=== PATIENT | male | born 1980 | race Caucasian/White ===

== ENCOUNTER 2019-12-08 16:59 | Emergency (ER) | payer OTHER ==
[2019-12-08 17:06] VITALS: BP 124/78; PULSE 76; TEMP 98.5; BMI 38.9
[2019-12-08] MEDS ORDERED: IBUPROFEN 600 MG TABLET (FP) PO ONE ×2 (17:36→17:41)
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
== END 2019-12-08 18:25 | disposition home or self-care (01) ==
LOC: JERFT 16:59
DX: S16.1XXA Strain of muscle, fascia and tendon at neck level, initial encounter (principal); M77.12 Lateral epicondylitis, left elbow
CPT/HCPCS: 72040-TC; 73070-TC-LT-FY; 99283-25

== ENCOUNTER 2023-09-25 15:25 | Emergency (ER) | payer OTHER ==
[2023-09-25 15:33] VITALS: RESP 18; TEMP 98; BMI 32.0
[2023-09-25] MEDS ORDERED: morphine SULFATE 4 MG/ML VIAL ONE ×2 (15:38→18:25)
[2023-09-25] MEDS: morphine CARPU-JECT 4 MG/1 ML DISP.SYRIN IVPUSH ONE ×2 (15:57→18:38)
[2023-09-25] MEDS ORDERED: DIPHTH,PERTUSS(ACELL),TET 0.5 ML DISP.SYRIN IM ONE (16:41)
[2023-09-25] MEDS: DIPHTH,PERTUSS(ACELL),TET 0.5 ML DISP.SYRIN IM ONE (16:44)
[2023-09-25] MEDS: SODIUM CHLORIDE 0.9% 1000 ML INFUS.BAG IV ONE (16:44)
[2023-09-25 16:50] LABS: BASO % 0.1 % (0-2.0); EOS % 0.2 % (0-4.5); HEMATOCRIT 47.4 % (35.4-49); HEMOGLOBIN 16.2 GM/dL (11.7-16.9); MCH 31.6 pg (25.7-33.7); MCHC 34.1 g/dl (32.0-35.9); MEAN CELL VOLUME 92.6 fl (80-96); MEAN PLT VOLUME 9.2 fl (7.5-11.1); MONO % 6.5 % (3.8-10.2); NEUT % 84.2 % (42.8-82.8); PLATELET COUNT 200 10^3/uL (134-434); RBC 5.12 M/mm3 (4.00-5.60); RDW 14.3 % (11.9-15.9)
[2023-09-25 16:56] LABS: INR 1.01 (0.83-1.09); PROTHROMBIN TIME (PATIENT) 11.6 SEC (9.7-13.0)
[2023-09-25 17:03] LABS: POTASSIUM 3.5 mmol/L (3.5-5.1)
[2023-09-25 17:05] LABS: ALBUMIN 4.3 g/dl (3.4-5.0); BLOOD UREA NITROGEN 20.5 mg/dL (7-18); CALCIUM 9.1 mg/dL (8.5-10.1)
[2023-09-25 17:08] LABS: CREATININE 1.1 mg/dL (0.55-1.3)
[2023-09-25 17:10] LABS: BILIRUBIN,TOTAL 0.8 mg/dL (0.2-1); TOT PROT 7.6 g/dl (6.4-8.2)
[2023-09-25 18:33] VITALS: BP 98/58; PULSE 64
[2023-09-25] MEDS: SODIUM CHLORIDE 0.9% 500 ML INFUS.BAG IV ONE (18:54)
== END 2023-09-25 20:46 | disposition short-term general hospital (02) ==
LOC: JER 15:25
PROC: 3E033NZ Introduction of Analgesics, Hypnotics, Sedatives into Peripheral Vein, Percutaneous Approach (ICD-10-PCS; principal; 2023-09-25)
PROC: 3E033NZ Introduction of Analgesics, Hypnotics, Sedatives into Peripheral Vein, Percutaneous Approach (ICD-10-PCS; 2023-09-25)
PROC: 3E0234Z Introduction of Serum, Toxoid and Vaccine into Muscle, Percutaneous Approach (ICD-10-PCS; 2023-09-25)
DX: S22.43XA Multiple fractures of ribs, bilateral, initial encounter for closed fracture (principal); Y04.8XXA Assault by other bodily force, initial encounter; Z20.822 Contact with and (suspected) exposure to COVID-19; Z23 Encounter for immunization
CPT/HCPCS: 0241U-QW; 36415; 70450-TC; 71260-TC; 72125-TC; 72128-TC; 72131-TC; 74177-TC; 76604; 76705-TC; 80053; 80307; 85025; 85610; 85730; 86850; 86900; 86901; 90715; 93308; 99285-25; Q9967